=== PATIENT | female | born 1960 ===

== ENCOUNTER 2016-11-01 15:47 | Inpatient (IN) | payer OTHER ==
--- NOTE | 2016-11-01 17:14 | C.PDOC ---
History Of Present Illness Tamika Crowley, a 55 year old female with a past medical history of hypertension presents to the emergency department with epigastric pain and vomiting. The patient rates her pain at an 8/10 on the pain scale. Patient reports that the pain radiates down the left side and into her back. She states that prior to coming into the emergency department she had 3 episodes of vomiting. Upon arrival to the emergency department patient is diaphoretic, moaning, groaning, tearful and swooning in bed in pain. Denies dysuria, headache and fever but does note some vomiting and chills. Chief Complaint (Nursing): Abdominal Pain History Per: Patient History/Exam Limitations: no limitations Current Symptoms Are (Timing): Still Present Pain Scale Rating Of: 8 Past Medical History Reviewed: Historical Data, Nursing Documentation, Vital Signs Vital Signs: Last Vital Signs Temp 99.1 F 11/05/16 15:58 Pulse 82 11/05/16 15:58 Resp 20 11/05/16 15:58 BP 137/62 11/05/16 15:58 Pulse Ox 90 L 11/05/16 15:58 - Medical History PMH: HTN, Hyperlipidemia - Social History Hx Tobacco Use: No Hx Alcohol Use: No Hx Substance Use: No - Immunization History Hx Tetanus Toxoid Vaccination: No Hx Influenza Vaccination: No Hx Pneumococcal Vaccination: No Review Of Systems Constitutional: Positive for: Chills. Negative for: Fever Gastrointestinal: Positive for: Vomiting (x3 episodes) Genitourinary: Negative for: Dysuria Neurological: Negative for: Headache Physical Exam - Physical Exam Appears: Well, Non-toxic, No Acute Distress Skin: Normal Color, Warm, Dry Head: Atraumatic, Normacephalic Eye(s): bilateral: Normal Inspection, PERRL, EOMI Cardiovascular: Rhythm Regular Respiratory: Normal Breath Sounds, No Wheezing Gastrointestinal/Abdominal: Bowel Sounds, Soft, Tenderness (minimal tenderness to epigastric area) Back: Normal Inspection, No CVA Tenderness Neurological/Psych: Oriented x3, Normal Speech ED Course And Treatment - Laboratory Results Result Diagrams: 11/05/16 08:10 11/05/16 08:10 O2 Sat by Pulse Oximetry: 95 (RA) Pulse Ox Interpretation: Normal Medical Decision Making Medical Decision Making: Initial Impression: 55 year old female presenting with epigastric pain and vomiting Initial Plan: * CT ABD&PELV w/o PO contrast * EKG * B-type natriuretic * Comp Metabolic * Lipase * Troponin * CBC * Obstructive series * 1 tab PO * Maalox 30ml PO * Morphine 2mg IVP * Pepcid * NS 1000mls IV 1000mls/hr * Zofran 4mg IVP * Urine culture * Urinalysis * US Abdomen Limited * Reevaluation 1800 CT performed to r/o stones Lab called, CT reveals pancreatitis. LFT and white count elevated. Scribe Attestation Documented by Estefania Arana acting as a scribe fro Brissa Ruggiero MD. Provider Attestation All medical record entries made by the scribe were at my direction and personally dictated by me. I have reviewed the chart and agree that the record accurately reflects my personal performance, history, physical exam, medical decision making, and the department course for this patient. Ihave also personally directed, reviewed, and agree with the discharge instructions and disposition. Disposition Discussed With .: Luigi Blackburn Doctor Will See Patient In The: Hospital Counseled Patient/Family Regarding: Studies Performed, Diagnosis - Disposition Disposition: HOSPITALIZED Disposition Time: 18:40 Condition: GUARDED - Clinical Impression Clinical Impression: Pancreatitis Decision To Admit - Pt Status Changed To: Hospital Disposition Of: Inpatient - Admit Certification Admit to Inpatient:: After my assessment, the patient will require hospitalization for at least two midnights. This is because of the severity of symptoms shown, intensity of services needed, and/or the medical risk in this patient being treated as an outpatient. - InPatient: Physician Admission Certification:: pancreatitis - . Bed Request Type: Regular Patient Diagnosis: Pancreatitis
[2016-11-01] MEDS ORDERED: Aluminum Hydroxide/Magnesium Hydroxide Susp (30 mL) PO STA (17:15)
[2016-11-01] MEDS ORDERED: Sodium Chloride 0.9% 1,000 ML IV ONE (17:15)
[2016-11-01] MEDS ORDERED: Belladonna-Phenobarbital PO STA (17:15)
[2016-11-01] MEDS ORDERED: Belladonna-Phenobarbital ONE (17:24)
[2016-11-01] MEDS ORDERED: Sodium Chloride 0.9% 1,000 ML ONE (17:25)
[2016-11-01] MEDS ORDERED: Aluminum Hydroxide/Magnesium Hydroxide Susp (30 mL) ONE (17:25)
[2016-11-01] MEDS ORDERED: Morphine 4 MG/ML VIAL ONE (17:25)
[2016-11-01 17:27] LABS: BASO % 0.3 % (0.0-2.0); EOS % 0.3 % (0.0-4.0); LYMPH # 2.7 K/uL (1.0-4.3); LYMPH % 16.8 % (20.0-40.0); MEAN CELL VOLUME 86.2 fL (81.0-99.0); MEAN CORPUSCULAR HEMOGLOBIN 28.9 pg (27.0-31.0); MEAN CORPUSCULAR HGB CONC 33.5 g/dL (33.0-37.0); NEUT # 12.2 K/uL (1.8-7.0); NEUT % 76.6 % (50.0-75.0); NRBC % 0.1 % (0.0-2.0); RBC 5.2 Mil/uL (3.80-5.20); RED CELL DISTRIBUTION WIDTH 13.3 % (11.5-14.5)
[2016-11-01 17:35] LABS: ALBUMIN 4.4 g/dL (3.5-5.0)
[2016-11-01 17:38] LABS: ALB/GLOB RATIO 1.2 (1.0-2.1); AST/SGOT 193 U/L (14-36); BLOOD UREA NITROGEN 20 mg/dL (7-17); GFR AFRICAN-AMERICAN > 60; GFR NON-AFRICAN AMERICAN > 60
[2016-11-01 17:39] LABS: ALT/SGPT 132 U/L (9-52); CALCIUM 9.3 mg/dl (8.6-10.4)
[2016-11-01 17:48] LABS: B-TYPE NATRIURETIC PEPTIDE 21.8 pg/mL (0-900)
--- NOTE | 2016-11-01 18:20 | CT ---
PROCEDURE: CT Abdomen and Pelvis without intravenous contrast HISTORY: Unspecified abdominal pain COMPARISON: 08/18/2015 CT abdomen and pelvis 08/17/2016 pelvic ultrasound TECHNIQUE: Without contrast.. Contrast Dose: Unenhanced study. Neither oral nor intravenous contrast administered. Radiation dose: Total exam DLP = 1077.48 mGy-cm. This CT exam was performed using one or more of the following dose reduction techniques: Automated exposure control, adjustment of the mA and/or kV according to patient size, and/or use of iterative reconstruction technique. FINDINGS: LOWER THORAX: Unremarkable. LIVER: Hepatic steatosis. No focal masses. No intrahepatic bile duct dilatation or perihepatic ascites. GALLBLADDER AND BILE DUCTS: Unremarkable. PANCREAS: Diffusely enlarged, edematous pancreas with perinephric stranding particularly involving the body and tail of the pancreas with fluid tracking for the spleen. SPLEEN: Unremarkable. ADRENALS: Unremarkable. No mass. KIDNEYS AND URETERS: Unremarkable. No hydronephrosis. No solid mass. VASCULATURE: Unremarkable. No aortic aneurysm. BOWEL: Unremarkable. No obstruction. No gross mural thickening. APPENDIX: No abnormalities to suggest acute appendicitis. No right lower quadrant inflammatory processes identified. PERITONEUM: Unremarkable. No free fluid. No free air. LYMPH NODES: Unremarkable. No enlarged lymph nodes. BLADDER: Unremarkable. REPRODUCTIVE: Unremarkable. BONES: No acute fracture. OTHER FINDINGS: None. IMPRESSION: Evidence of pancreatitis. The absence of intravenous contrast precludes assessment for necrotizing pancreatitis. Communication of results: I discussed findings directly with the ordering physician Dr. Ruggiero at the time of this interpretation. . Study completed 17:36. Verbal results provided 18:13. Final results available in the electronic medical record at 18:18
[2016-11-01 18:46] LABS: LIPASE 41520 U/L (23-300)
--- NOTE | 2016-11-01 19:36 | CP.PCM.HP ---
<Sander Rockwell - Last Filed: 11/02/16 00:14> History of Present Illness - History of Present Illness History of Present Illness: Patient seen and evaluated at approximately 19:30PM by singer songwriter. CC: abdominal pain HPI: 55 year old female with PMHx significant for hypercholesterolemia and heart murmur presents with complaints of epigastric abdominal pain which started earlier today. Patient states that she was about to make lunch around 14 :30PM when she started experiencing the pain. It was initially rated an 8/10 with radiation to her back. Patient states that she has never experienced this sensation before. She experienced chills and "felt" as if she could not move her legs. Patient states that she was truly just surprised by the abdominal pain and was in fact able to ambulate about without difficulty. Patient called 911 and was thus brought to the emergency room. Upon arriving, patient had three episodes of non bloody; questionably bilious vomitus. Patient admits to chills, diaphoresis and nausea. She denies chest pain, palpitations, headaches, diarrhea, constipation, leg pain, recent travel, recent dietary changes, weight changes, changes in appetite, trauma, insect or animal bite or paresthesias at this time. Patient was accompanied by family members including son who is employed here. PMHx- as noted above. Of note, murmur was discovered incidentally on routine studies that patient acquired approx 10 years ago. Patient does not follow up with any doctor and has not had complaints of cardiac related symptoms in the past. PSHx- denies Fam Hx- many members of the family have high cholesterol; brother has a heart murmur Meds- None Social Hx- Admits to occasional alcohol use. Patient had a glass of wine on Monday. Denies tobacco or drug use. Allergies- NKDA PMD- None In the ED- Routine studies including ( but not limited to): CT abdomen, Abd US , Lipase, EKG, Obstructive series were ordered. Patient administered fluids, pain meds, zofran, simethicone, pepcid . Present on Admission - Present on Admission Any Indicators Present on Admission: No Review of Systems - Review of Systems Systems not reviewed;Unavailable: Language Barrier - Constitutional Constitutional: Chills, Excessive Sweating. absent: Fever, Headache, Weight Gain, Weight Loss, Weakness - EENT Eyes: absent: Blurred Vision, Change in Vision Nose/Mouth/Throat: absent: Nasal Congestion - Cardiovascular Cardiovascular: absent: Chest Pain, Chest Pain at Rest - Respiratory Respiratory: absent: Dyspnea - Gastrointestinal Gastrointestinal: Abdominal Pain, Nausea, Vomiting. absent: Constipation, Diarrhea - Genitourinary Genitourinary: absent: Change in Urinary Stream - Musculoskeletal Musculoskeletal: Back Pain. absent: Abnormal Gait, Arthralgias - Integumentary Integumentary: absent: Dry Skin, Skin Pain - Neurological Neurological: absent: Dizziness, Weakness - Psychiatric Psychiatric: absent: Anxiety - Endocrine Endocrine: absent: Change in Body Appearance, Fatigue Past Patient History - Past Social History Smoking Status: Never Smoked Alcohol: Occasional Drugs: Denies Home Situation {Lives}: With Family - CARDIAC Hx Hypertension: Yes - PSYCHIATRIC Hx Substance Use: No - SURGICAL HISTORY Hx Surgeries: No - ANESTHESIA Hx Anesthesia: No Meds Allergies/Adverse Reactions: Allergies Allergy/AdvReac Type Severity Reaction Status Date / Time No Known Allergies Allergy Verified 08/18/15 09:53 Physical Exam - Constitutional Appears: Non-toxic, No Acute Distress - Head Exam Head Exam: ATRAUMATIC, NORMAL INSPECTION, NORMOCEPHALIC - Eye Exam Eye Exam: EOMI, Normal appearance, PERRL. absent: Scleral icterus Pupil Exam: NORMAL ACCOMODATION, PERRL - ENT Exam ENT Exam: Mucous Membranes Moist, Normal Exam - Neck Exam Neck exam: Positive for: Full Rom - Respiratory Exam Respiratory Exam: Clear to Auscultation Bilateral, NORMAL BREATHING PATTERN. absent: Wheezes - Cardiovascular Exam Cardiovascular Exam: REGULAR RHYTHM, +S1, +S2 - GI/Abdominal Exam GI & Abdominal Exam: Distended, Hypoactive Bowel Sounds, Soft, Tenderness ( epigastric ans tender with palpation). absent: Firm, Guarding, Rebound, Rigid - Expanded GI/Abdominal Exam Expanded Expanded GI & Abdominal Exam: absent: Johnson's Sign, Rovsing's Sign, McBurney's Point Tenderness - Extremities Exam Extremities exam: Positive for: full ROM, normal capillary refill, tenderness, pedal pulses present. Negative for: calf tenderness, pedal edema - Back Exam Back exam: FULL ROM, tenderness (left flank) - Neurological Exam Neurological exam: Alert, CN II-XII Intact, Oriented x3 - Psychiatric Exam Psychiatric exam: Normal Affect, Normal Mood - Skin Skin Exam: Dry, Intact, Normal Color, Warm Results - Vital Signs Recent Vital Signs: Last Vital Signs Temp 97.8 F 11/01/16 16:10 Pulse 73 11/01/16 16:10 Resp 18 11/01/16 16:10 BP 126/74 11/01/16 16:10 Pulse Ox 95 11/01/16 19:17 - Labs Result Diagrams: 11/01/16 17:24 11/01/16 17:24 Assessment & Plan (1) Pancreatitis Assessment and Plan: Ct Abd with findings consistent with pancreatitis.- Diffusely enlarged edematous pancreas with perinephric stranding involving body and tail of pancreas Refer to full report. Abd US- confirms gallstones in gb; negative johnson's sign, normal gallbladder wall , no CBD dilation noted. F/U abdominal series [place] [address] LFTs and T. Bili elevated. F/U D. bili. UA 2+ urobilinogen noted Patient on LR @ 200cc/hr. Monitor for signs of fluid overload Morphine 2 mg IV Q4 PRN Zofran PRN Patient counseled on high cholesterol as well as importance of dietary changes with exercise. At this time, GI consult and/or surgery consult are of consideration. Patient may eventually benefit from elective cholecystectomy however gallbladder and CBD do not appear to be acutely inflamed at this time based on imaging. This is a first time symptomatic presentation for patient and thus will monitor overnight. Her presentation may be due to the presence of gallstones coupled with high cholesterol. Will need to check Lipid Panel, A1c, thyroid studies and routine AM labs. Status: Acute (2) Transaminitis Assessment and Plan: Elevated LFTs AST- 193 ALT- 132 Alk-P 100 F/U Hepatitis Panel Status: Acute (3) Hx of cardiac murmur Assessment and Plan: Troponin negative. EKG NSR F/U Echo BNP 21.8 Asymptomatic. Hx of incidental murmur discovered 10 years ago for which patient has not had a prior workup. Status: Chronic (4) Hypercholesterolemia Assessment and Plan: Patient with known history of high cholesterol. Will check Lipid panel Patient counseled on high cholesterol as well as importance of dietary changes with exercise. Status: Chronic (5) Prophylactic measure Assessment and Plan: SCDs Heparin SC Q 12 GI prophylaxis not currently indicated Status: Acute <Raul Fisher - Last Filed: 11/02/16 06:21> Results - Vital Signs Recent Vital Signs: Last Vital Signs Temp 98.6 F 11/01/16 23:46 Pulse 80 11/01/16 23:46 Resp 20 11/01/16 23:46 BP 120/77 11/01/16 23:46 Pulse Ox 96 11/01/16 23:46 - Labs Result Diagrams: 11/01/16 17:24 11/01/16 17:24 Labs: Laboratory Results - last 24 hr 11/01/16 21:36 Urine Color Yellow Urine Clarity Clear Urine pH 6.0 Ur Specific [place] 1.020 Urine Protein Negative Urine Glucose (UA) Normal Urine Ketones Trace Urine Blood Negative Urine Nitrate Negative Urine Bilirubin Negative Urine Urobilinogen 2.0 H Ur Leukocyte Esterase Neg Urine WBC (Auto) 1 Urine RBC (Auto) 4 H Ur Squamous Epith Cells 1 Urine Bacteria Rare Assessment & Plan - Date & Time Date: 11/02/16 (I have seen and examined the patient. I agree with the findings and plan of care as documented by Dr. Rockwell. Patient with acute pancreatitis. Also with transaminitis. CT confirms pancreatitis. Consider GI consult if necessary. Check acute hep panel. Symptomatic treatment. NPO. IVF. Monitor for acute changes.) Time: 06:19 Attending/Attestation - Attestation I have personally seen and examined this patient.: Yes I have fully participated in the care of the patient.: Yes I have reviewed all pertinent clinical information: Yes
[2016-11-01] MEDS: Lactated Ringer's 1,000 ML IV SCH (21:05)
[2016-11-01 22:00] LABS: SQUAMOUS EPITHIAL 1 /hpf (0-5); URINE BACTERIA RARE (<OCC); URINE BILIRUBIN NEGATIVE (NEGATIVE); URINE BLOOD NEGATIVE (NEGATIVE); URINE CLARITY Clear (Clear); URINE COLOR Yellow (YELLOW); URINE GLUCOSE (UA) NORMAL (Normal); URINE LEUKOCYTE ESTERASE NEG Leu/uL (Negative); URINE NITRATE NEGATIVE (NEGATIVE); URINE PROTEIN NEGATIVE (NEGATIVE)
[2016-11-01] MEDS ORDERED: Morphine 4 MG/ML VIAL IVP PRN (22:00)
[2016-11-02] MEDS: Lactated Ringer's 1,000 ML IV SCH ×8 (00:49→23:44)
--- NOTE | 2016-11-02 06:46 | US ---
Right upper quadrant abdominal ultrasound History: Abdominal pain. Comparison: None available. Technique: Real-time sonography was performed through the right upper quadrant of the abdomen. Findings: Liver: 15.3 centimeters in length. Increased echogenicity of the hepatic parenchymal cortex suggestive for fatty infiltration versus hepatic parenchymal disease. Clinical correlation. Gallbladder: Cholelithiasis. Normal gallbladder wall thickness of 1.5 millimeters. Negative sonographic Johnson's sign. Common bile duct measures 5.3 millimeters, within normal limits. Limited visualization of the pancreas. Visualized aorta and IVC are grossly preserved. Right kidney: 9.4 x 4.2 x 6.4 centimeters. No calculi or hydronephrosis. Impression: 1. Diffuse increased echogenicity of the hepatic parenchymal cortex suggestive for fatty infiltration versus hepatic parenchymal disease. Clinical correlation. 2. Cholelithiasis. Normal gallbladder wall thickness of 1.5 millimeters. Negative sonographic Johnson sign. 3. Limited visualization of the pancreas. If there is concern for pancreatic pathology, consider further evaluation with a CT scan. These findings were preliminarily reported at 8:46 p.m. on 11/01/[address] Jabier Fuller from [facility].
[2016-11-02 08:16] LABS: BASO % 0.4 % (0.0-2.0); HEMOGLOBIN 13.5 g/dL (11.0-16.0); LYMPH # 1.3 K/uL (1.0-4.3); LYMPH % 14.5 % (20.0-40.0); MEAN CELL VOLUME 86.8 fL (81.0-99.0); MEAN CORPUSCULAR HEMOGLOBIN 29.3 pg (27.0-31.0); MEAN CORPUSCULAR HGB CONC 33.8 g/dL (33.0-37.0); MEAN PLATELET VOLUME 7.8 fL (7.2-11.7); MONO # 0.4 K/uL (0.0-0.8); MONO % 4.7 % (0.0-10.0); NEUT # 7.3 K/uL (1.8-7.0); NEUT % 80.4 % (50.0-75.0); RBC 4.59 Mil/uL (3.80-5.20); WHITE BLOOD COUNT 9.1 K/uL (4.8-10.8)
[2016-11-02 08:26] LABS: INR 1.1; PROTHROMBIN TIME 12.1 SECONDS (9.7-12.2)
[2016-11-02 08:28] LABS: ALBUMIN 3.4 g/dL (3.5-5.0)
[2016-11-02 08:31] LABS: BILIRUBIN,DIRECT 0.4 mg/dL (0.0-0.4); GFR AFRICAN-AMERICAN > 60; GFR NON-AFRICAN AMERICAN > 60
[2016-11-02 08:32] LABS: ALT/SGPT 160 U/L (9-52); AST/SGOT 124 U/L (14-36); BLOOD UREA NITROGEN 15 mg/dL (7-17); CALCIUM 8.2 mg/dl (8.6-10.4)
[2016-11-02 08:33] LABS: HDL CHOLESTEROL 40 mg/dL (30-70); MAGNESIUM 1.9 mg/dL (1.6-2.3)
[2016-11-02 09:00] LABS: LDL CHOLESTEROL 184 mg/dL (0-129)
[2016-11-02 09:02] LABS: HEPATITIS B SURFACE AG NEGATIVE (NEGATIVE)
[2016-11-02 09:07] LABS: HEPATITIS A IGM NEGATIVE (NEGATIVE); HEPATITIS B CORE AB NEGATIVE (NEGATIVE)
[2016-11-02 09:19] LABS: HEPATITIS C ANTIBODY NEGATIVE (NEGATIVE)
--- NOTE | 2016-11-02 09:34 | CP.PCM.PN ---
<Ludin Bishopa - Last Filed: 11/02/16 12:16> Subjective - Date & Time of Evaluation Date of Evaluation: 11/02/16 Time of Evaluation: 07:00 - Subjective Subjective: Medicine Note for Dr. Blackburn Patient was seen and examined at bedside. Patient reports he pain is well controlled. Admits to mild left sided abdominal pain, but reports this is a 2-3/ 10 compared to a 10/10 last night. Denied fever, chills, headache, chest pain, n /v/d/c, or urinary symptoms. Objective - Vital Signs/Intake and Output Vital Signs (last 24 hours): Temp Pulse Resp BP Pulse Ox 98.6 F 80 20 120/77 96 11/01/16 23:46 11/01/16 23:46 11/01/16 23:46 11/01/16 23:46 11/01/16 23:46 Intake and Output: 11/02/16 11/02/16 06:59 18:59 Intake Total 1999 Balance 1999 - Medications Medications: Current Medications Heparin Sodium (Porcine) (Heparin) 5,000 units SC Q12 ANDREI Lactated Ringer's (Lactated Ringer's) 1,000 mls @ 200 mls/hr IV .Q5H ANDREI Last Admin: 11/02/16 06:37 Dose: 200 mls/hr Morphine Sulfate (Morphine) 2 mg IVP Q4 PRN PRN Reason: Pain, moderate (4-7) Last Admin: 11/01/16 22:13 Dose: 2 mg Ondansetron HCl (Zofran Inj) 4 mg IVP Q6 PRN PRN Reason: Nausea/Vomiting Pneumococcal Polyvalent Vaccine (Pneumovax 23 Vaccine) 0.5 ml IM .ONCE ONE Stop: 11/03/16 10:01 - Labs Labs: 11/02/16 08:01 11/02/16 08:01 PT 12.1 SECONDS (9.7-12.2) 11/02/16 08:01 INR 1.1 11/02/16 08:01 APTT 28 SECONDS (21-34) 11/02/16 08:01 - Constitutional Appears: No Acute Distress - Head Exam Head Exam: NORMAL INSPECTION, NORMOCEPHALIC - Eye Exam Eye Exam: EOMI, Normal appearance, PERRL Pupil Exam: NORMAL ACCOMODATION - ENT Exam ENT Exam: Mucous Membranes Moist - Neck Exam Neck Exam: Normal Inspection - Respiratory Exam Respiratory Exam: Clear to Ausculation Bilateral, NORMAL BREATHING PATTERN - Cardiovascular Exam Cardiovascular Exam: REGULAR RHYTHM, RRR, +S1, +S2 - GI/Abdominal Exam GI & Abdominal Exam: Soft, Tenderness (LUQ, epigastric TTP), Normal Bowel Sounds - Extremities Exam Extremities Exam: Normal Inspection. absent: Pedal Edema, Tenderness - Neurological Exam Neurological Exam: Alert, Awake, Oriented x3 - Skin Skin Exam: Dry, Intact, Normal Color, Warm Assessment and Plan - Assessment and Plan (Free Text) Plan: Pancreatitis Assessment and Plan: Abd US- confirms gallstones in gb; negative lance's sign, normal gallbladder wall , no CBD dilation noted. Ct Abd with findings consistent with pancreatitis.- Diffusely enlarged edematous pancreas with perinephric stranding involving body and [place]. [place] [address] LFTs and T. Bili elevated. D. bili - WNL UA 2+ urobilinogen noted NPO, Patient on LR @ 250cc/hr. Monitor for signs of fluid overload Morphine 2 mg IV Q4 PRN, Zofran PRN Patient counseled on high cholesterol as well as importance of dietary changes with exercise. Lipid Panel: T, Chol: 242, LDL: 184, HDL: 40 A1c- 5.7 Thyroid studies- WNL Abdominal series - negative GI Consulted- Dr. Arana- help appreciated - MRCP and MRI abdomen with and without contrast Surgery Consulted- Dr. Story- help appreciated Status: Acute Transaminitis Assessment and Plan: On admission: AST- 193/ ALT- 132/ Alk-P 100 Elevated LFTs - which are now downtrending Hepatitis Panel - negative Status: Acute Hx of cardiac murmur Assessment and Plan: Troponin negative. EKG NSR BNP 21.8 Asymptomatic. Hx of incidental murmur discovered 10 years ago for which patient has not had a prior workup. F/U ECHO Status: Chronic Hypercholesterolemia Assessment and Plan: Patient with known history of high cholesterol. Patient counseled on high cholesterol as well as importance of dietary changes with exercise. T, Chol: 242, LDL: 184, HDL: 40 Started on Crestor 10mg PO QHS Status: Chronic Prophylactic measure Assessment and Plan: SCDs Heparin SC Q 12 GI prophylaxis not currently indicated NPO Status: Acute DW Dario Loja DO, PGY-1 <Luigi Blackburn M - Last Filed: 11/02/16 17:35> Objective - Vital Signs/Intake and Output Vital Signs (last 24 hours): Temp Pulse Resp BP Pulse Ox 98.8 F 71 20 125/84 96 11/02/16 16:00 11/02/16 16:00 11/02/16 16:00 11/02/16 16:00 11/02/16 16:00 Intake and Output: 11/02/16 11/02/16 06:59 18:59 Intake Total 1999 1600 Balance 1999 1600 - Medications Medications: Current Medications Famotidine (Pepcid) 20 mg IVP DAILY COUNTS INCLUDE 234 BEDS AT THE [facility] Last Admin: 11/02/16 16:30 Dose: 20 mg Heparin Sodium (Porcine) (Heparin) 5,000 units SC Q12 COUNTS INCLUDE 234 BEDS AT THE [facility] Last Admin: 11/02/16 10:09 Dose: 5,000 units Lactated Ringer's (Lactated Ringer's) 1,000 mls @ 250 mls/hr IV .Q4H COUNTS INCLUDE 234 BEDS AT THE [facility] Last Admin: 11/02/16 12:30 Dose: Not Given Morphine Sulfate (Morphine) 4 mg IVP Q4 PRN PRN Reason: Pain, severe (8-10) Ondansetron HCl (Zofran Inj) 4 mg IVP Q6 PRN PRN Reason: Nausea/Vomiting Pneumococcal Polyvalent Vaccine (Pneumovax 23 Vaccine) 0.5 ml IM .ONCE ONE Stop: 11/03/16 10:01 Rosuvastatin Calcium (Crestor) 10 mg PO HS ANDREI - Labs Labs: 11/02/16 08:01 11/02/16 08:01 PT 12.1 SECONDS (9.7-12.2) 11/02/16 08:01 INR 1.1 11/02/16 08:01 APTT 28 SECONDS (21-34) 11/02/16 08:01 Attending/Attestation - Attestation I have personally seen and examined this patient.: Yes I have fully participated in the care of the patient.: Yes I have reviewed all pertinent clinical information, including history, physical exam and plan: Yes Notes (Text): 11/02/16 17:33 Patient was seen and examined at bedside with the resident Patient is being treated for acute pancreatitis We have requested gastroenterology and surgery evaluation. Follow-up report of the MRCP. Patient remains nothing by mouth and on IV fluids. Pain medication as needed. Crestor for hyperlipidemia. Patient is on GI and DVT prophylaxis Discussed the plan of care with the resident and agree with the assessment and plan documented above.
--- NOTE | 2016-11-02 10:52 | RAD ---
PROCEDURE: Radiographs of the chest and abdomen (obstructive series) HISTORY: Abdominal pain COMPARISON: No prior. TECHNIQUE: AP radiograph of the chest, with upright and supine radiographs of the abdomen. FINDINGS: CHEST: Lungs: Clear. Cardiovascular: Normal size heart. No pulmonary vascular congestion. Pleura: No pleural fluid. No pneumothorax. Other findings: None. ABDOMEN AND PELVIS: Bowel: The bowel gas pattern is nonobstructive. No evidence of mechanical obstruction. Free air: None. Bones: Unremarkable. Other findings: None. IMPRESSION: Nonobstructive bowel-gas pattern. Clear lungs.
[2016-11-02] MEDS ORDERED: Morphine 4 MG/ML VIAL IVP PRN (12:23)
--- NOTE | 2016-11-02 12:32 | CP.PCM.CON ---
History of Present Illness - History of Present Illness History of Present Illness: SURGERY CONSULT NOTE FOR DR. BRADFORD 54 year old female presented with abdominal pain. The pain began yesterday around 3pm. Pain is described as waxing and waning, only radiating to the back. It was describe as 3 out of 10. Nothing remediates or exacerbates the symptoms. Patients states she had 4 episodes of vomiting, chills, and nausea at the onset of the pain but the symptoms have subsided. At bedside patient denies fever, chills, nausea, vomiting. Denies smoking, alcohol use, and illicit drug use. PMH: HLD, new murmur PSH: denies Social: denies tobacco, alcohol, illicit drug use Allergies: NKDA Past Patient History - Past Medical History & Family History Past Medical History?: Yes - Past Social History Smoking Status: Never Smoked Alcohol: Occasional Drugs: Denies Home Situation {Lives}: With Family - CARDIAC Hx Hypertension: Yes - MUSCULOSKELETAL/RHEUMATOLOGICAL Hx Falls: No - PSYCHIATRIC Hx Substance Use: No - SURGICAL HISTORY Hx Surgeries: No - ANESTHESIA Hx Anesthesia: No Meds Allergies/Adverse Reactions: Allergies Allergy/AdvReac Type Severity Reaction Status Date / Time No Known Allergies Allergy Verified 08/18/15 09:53 - Medications Medications: Current Medications Heparin Sodium (Porcine) (Heparin) 5,000 units SC Q12 [facility] Last Admin: 11/02/16 10:09 Dose: 5,000 units Lactated Ringer's (Lactated Ringer's) 1,000 mls @ 250 mls/hr IV .Q4H [facility] Morphine Sulfate (Morphine) 4 mg IVP Q4 PRN PRN Reason: Pain, severe (8-10) Ondansetron HCl (Zofran Inj) 4 mg IVP Q6 PRN PRN Reason: Nausea/Vomiting Pneumococcal Polyvalent Vaccine (Pneumovax 23 Vaccine) 0.5 ml IM .ONCE ONE Stop: 11/03/16 10:01 Rosuvastatin Calcium (Crestor) 10 mg PO HS [facility] Physical Exam - Constitutional Appears: Non-toxic, No Acute Distress - Head Exam Head Exam: ATRAUMATIC - ENT Exam ENT Exam: Mucous Membranes Moist - Respiratory Exam Respiratory Exam: Clear to Auscultation Bilateral, NORMAL BREATHING PATTERN - Cardiovascular Exam Cardiovascular Exam: REGULAR RHYTHM, +S1, +S2 - GI/Abdominal Exam GI & Abdominal Exam: Guarding, Soft, Tenderness (epigastric, mild tenderness). absent: Distended, Firm, Rebound, Rigid - Extremities Exam Extremities exam: Negative for: tenderness - Neurological Exam Neurological exam: Alert, Oriented x3 - Psychiatric Exam Psychiatric exam: Normal Affect, Normal Mood - Skin Skin Exam: Dry, Intact, Normal Color, Warm Results - Vital Signs Recent Vital Signs: Last Vital Signs Temp 98.4 F 11/02/16 08:00 Pulse 65 11/02/16 08:00 Resp 20 11/02/16 08:00 BP 137/82 11/02/16 08:00 Pulse Ox 93 L 11/02/16 08:00 - Labs Result Diagrams: 11/02/16 08:01 11/02/16 08:01 Labs: Laboratory Results - last 24 hr 11/01/16 11/02/16 11/02/16 21:36 07:06 08:01 WBC 9.1 RBC 4.59 Hgb 13.5 Hct 39.8 MCV 86.8 MCH 29.3 MCHC 33.8 RDW 13.0 Plt Count 249 MPV 7.8 Neut % (Auto) 80.4 H Lymph % (Auto) 14.5 L [place] % (Auto) 4.7 Eos % (Auto) 0.0 Baso % (Auto) 0.4 Neut # 7.3 H Lymph # 1.3 Dent # 0.4 Eos # 0.0 Baso # 0.0 PT INR APTT Sodium Potassium Chloride Carbon Dioxide Anion Gap BUN Creatinine Est GFR ( Amer) Est GFR (Non-Af Amer) POC Glucose (mg/dL) 121 H Random Glucose Hemoglobin A1c Calcium Phosphorus Magnesium Total Bilirubin Direct Bilirubin AST ALT Alkaline Phosphatase Total Protein Albumin Globulin Albumin/Globulin Ratio Triglycerides Cholesterol LDL Cholesterol Direct HDL Cholesterol Free T4 TSH 3rd Generation Urine Color Yellow Urine Clarity Clear Urine pH 6.0 Ur Specific [place] 1.020 Urine Protein Negative Urine Glucose (UA) Normal Urine Ketones Trace Urine Blood Negative Urine Nitrate Negative Urine Bilirubin Negative Urine Urobilinogen 2.0 H Ur Leukocyte Esterase Neg Urine WBC (Auto) 1 Urine RBC (Auto) 4 H Ur Squamous Epith Cells 1 Urine Bacteria Rare Hepatitis A IgM Ab Hep Bs Antigen Hep B Core IgM Ab Hepatitis C Antibody 11/02/16 11/02/16 11/02/16 08:01 08:01 08:01 WBC RBC Hgb Hct MCV MCH MCHC RDW Plt Count MPV Neut % (Auto) Lymph % (Auto) [place] % (Auto) Eos % (Auto) Baso % (Auto) Neut # Lymph # [place] # Eos # Baso # PT 12.1 INR 1.1 APTT 28 Sodium 139 Potassium 3.7 Chloride 101 Carbon Dioxide 26 Anion Gap 16 BUN 15 Creatinine 0.6 L Est GFR ( Amer) > 60 Est GFR (Non-Af Amer) > 60 POC Glucose (mg/dL) Random Glucose 108 H Hemoglobin A1c Calcium 8.2 L Phosphorus 3.6 Magnesium 1.9 Total Bilirubin 1.4 H Direct Bilirubin 0.4 AST 124 H D ALT 160 H D Alkaline Phosphatase 74 Total Protein 6.7 Albumin 3.4 L D Globulin 3.3 Albumin/Globulin Ratio 1.0 Triglycerides 107 Cholesterol 242 H LDL Cholesterol Direct 184 H HDL Cholesterol 40 Free T4 TSH 3rd Generation 1.29 Urine Color Urine Clarity Urine pH Ur Specific [place] Urine Protein Urine Glucose (UA) Urine Ketones Urine Blood Urine Nitrate Urine Bilirubin Urine Urobilinogen Ur Leukocyte Esterase Urine WBC (Auto) Urine RBC (Auto) Ur Squamous Epith Cells Urine Bacteria Hepatitis A IgM Ab Negative Hep Bs Antigen Negative Hep B Core IgM Ab Negative Hepatitis C Antibody Negative 11/02/16 11/02/16 08:01 08:01 WBC RBC Hgb Hct MCV MCH MCHC RDW Plt Count MPV Neut % (Auto) Lymph % (Auto) [place] % (Auto) Eos % (Auto) Baso % (Auto) Neut # Lymph # [place] # Eos # Baso # PT INR APTT Sodium Potassium Chloride Carbon Dioxide Anion Gap BUN Creatinine Est GFR ( Amer) Est GFR (Non-Af Amer) POC Glucose (mg/dL) Random Glucose Hemoglobin A1c 5.7 Calcium Phosphorus Magnesium Total Bilirubin Direct Bilirubin AST ALT Alkaline Phosphatase Total Protein Albumin Globulin Albumin/Globulin Ratio Triglycerides Cholesterol LDL Cholesterol Direct HDL Cholesterol Free T4 0.91 TSH 3rd Generation Urine Color Urine Clarity Urine pH Ur Specific [place] Urine Protein Urine Glucose (UA) Urine Ketones Urine Blood Urine Nitrate Urine Bilirubin Urine Urobilinogen Ur Leukocyte Esterase Urine WBC (Auto) Urine RBC (Auto) Ur Squamous Epith Cells Urine Bacteria Hepatitis A IgM Ab Hep Bs Antigen Hep B Core IgM Ab Hepatitis C Antibody Assessment & Plan - Assessment and Plan (Free Text) Assessment: 55 F with acute pancreatitis 2/2 likely gallstones Lipase 41K, TBili 1.4, Abdominal U/S Cholelithiasis, CBD 5.[address] shows pancreatitis Plan: NPO, pain control, IVF F/U MRCP, F/U GI recommendations F/U Echo for murmur GI/DTV prophylaxis Further recs discuss with Dr. Porsha Ragsdale, PGY2
--- NOTE | 2016-11-02 12:34 | CARD ---
APPROVED REPORT EKG Measurement Heart [id number] <Conclusion> Normal sinus rhythm Normal ECG
[2016-11-02] MEDS ORDERED: Gadodiamide 287 mg/ml 20 ml IV ONE (14:56)
--- NOTE | 2016-11-02 16:59 | MRI ---
PROCEDURE: Magnetic Resonance Cholangiopancreatography HISTORY: COMPARISON: None available. TECHNIQUE: Multiplanar, multisequence MR images of the abdomen were obtained, including heavily T2 weighted MRCP images of the biliary system. Rotating maximum intensity projection images of the biliary system were generated. FINDINGS: MRCP: The common bile duct measures approximately 7 mm in diameter. There is smooth distal tapering. There is no filling defect identified. There is no intrahepatic biliary dilatation seen. The pancreatic duct is normal in caliber. LIVER: Normal size, contour and signal intensity. No mass. No biliary dilatation. No abnormal enhancement following gadolinium administration. GALLBLADDER: Cholelithiasis. No mural thickening. No pericholecystic fluid/ edema. SPLEEN: Unremarkable. PANCREAS: The pancreas is significant for fluid about the tail extending to the left anterior and posterior pararenal spaces, consistent with acute pancreatitis. There is no pancreatic mass. Post gadolinium images demonstrate no evidence necrotizing pancreatitis. ADRENALS: Unremarkable. KIDNEYS: Unremarkable. AORTA: No aneurysm. ASCITES: None. OTHER FINDINGS: None. IMPRESSION: Findings consistent with acute focal pancreatitis involving the tail of pancreas. Fluid about the pancreatic tail extending to the left anterior and posterior para renal spaces. No focal fluid collection. No evidence of choledocholithiasis. Cholelithiasis is noted without evidence of cholecystitis. No evidence of necrotizing pancreatitis. No additional abnormality.
--- NOTE | 2016-11-02 17:48 | CP.PCM.CON ---
History of Present Illness - History of Present Illness History of Present Illness: This is a 55 year old woman admitted for nausea, vomiting, and abdominal pain. Patient presented to the ER on 11/01/16 with sudden onset of severe, colicky epigastric pain four hours earlier accompanied by chills, nausea, vomiting ( three times), and sweating. She denies having chest pain, palpitations, constipation, diarrhea, loss of appetite, loss of weight. She denies recent travel. Evaluation in the ER showed abnormal liver enzymes and a markedly elevated lipase level, 41,520. The TBILI is 1.4, AST 124 (was 193), ALT 160 (was 132). Imaging studies have included: sonogram, which showed gallstones and normal CBD ; CT scan, which showed enlarged, edematous pancreas with peripancreatic stranding; and MRCP which showed CBD 7 mm and no CBD stones, and fluid around the tail of the pancreas. At present, patient denies having nausea and vomiting, and the abdominal pain is minimal. Review of Systems - Constitutional Constitutional: Chills, Excessive Sweating. absent: Fever - Cardiovascular Cardiovascular: absent: Chest Pain - Respiratory Respiratory: absent: Dyspnea - Gastrointestinal Gastrointestinal: Abdominal Pain, Nausea, Vomiting. absent: Constipation, Diarrhea - Genitourinary Genitourinary: absent: Change in Urinary Stream Past Patient History - Past Medical History & Family History Past Medical History?: Yes - Past Social History Smoking Status: Never Smoked Alcohol: Occasional Drugs: Denies Home Situation {Lives}: With Family - CARDIAC Hx Hypertension: Yes - MUSCULOSKELETAL/RHEUMATOLOGICAL Hx Falls: No - PSYCHIATRIC Hx Substance Use: No - SURGICAL HISTORY Hx Surgeries: No - ANESTHESIA Hx Anesthesia: No Meds Allergies/Adverse Reactions: Allergies Allergy/AdvReac Type Severity Reaction Status Date / Time No Known Allergies Allergy Verified 08/18/15 09:53 - Medications Medications: Current Medications Famotidine (Pepcid) 20 mg IVP DAILY [facility] Last Admin: 11/02/16 16:30 Dose: 20 mg Heparin Sodium (Porcine) (Heparin) 5,000 units SC Q12 [facility] Last Admin: 11/02/16 10:09 Dose: 5,000 units Lactated Ringer's (Lactated Ringer's) 1,000 mls @ 250 mls/hr IV .Q4H [facility] Last Admin: 11/02/16 12:30 Dose: Not Given Morphine Sulfate (Morphine) 4 mg IVP Q4 PRN PRN Reason: Pain, severe (8-10) Ondansetron HCl (Zofran Inj) 4 mg IVP Q6 PRN PRN Reason: Nausea/Vomiting Pneumococcal Polyvalent Vaccine (Pneumovax 23 Vaccine) 0.5 ml IM .ONCE ONE Stop: 11/03/16 10:01 Rosuvastatin Calcium (Crestor) 10 mg PO HS [facility] Physical Exam - Constitutional Appears: No Acute Distress - Head Exam Head Exam: ATRAUMATIC, NORMOCEPHALIC - Eye Exam Eye Exam: EOMI, PERRL. absent: Scleral icterus - Neck Exam Neck exam: Negative for: Lymphadenopathy, Thyromegaly - Respiratory Exam Respiratory Exam: NORMAL BREATHING PATTERN. absent: Rales, Rhonchi, Wheezes - Cardiovascular Exam Cardiovascular Exam: REGULAR RHYTHM, +S1, +S2. absent: Gallop, Rubs, Systolic Murmur - GI/Abdominal Exam GI & Abdominal Exam: Normal Bowel Sounds, Soft. absent: Mass, Organomegaly, Tenderness - Rectal Exam Rectal Exam: Deferred - Extremities Exam Extremities exam: Negative for: calf tenderness, pedal edema Results - Vital Signs Recent Vital Signs: Last Vital Signs Temp 98.8 F 11/02/16 16:00 Pulse 71 11/02/16 16:00 Resp 20 11/02/16 16:00 BP 125/84 11/02/16 16:00 Pulse Ox 96 11/02/16 16:00 - Labs Result Diagrams: 11/02/16 08:01 11/02/16 08:01 Labs: Laboratory Results - last 24 hr 11/01/16 11/02/16 11/02/16 21:36 07:06 08:01 WBC 9.1 RBC 4.59 Hgb 13.5 Hct 39.8 MCV 86.8 MCH 29.3 MCHC 33.8 RDW 13.0 Plt Count 249 MPV 7.8 Neut % (Auto) 80.4 H Lymph % (Auto) 14.5 L [place] % (Auto) 4.7 Eos % (Auto) 0.0 Baso % (Auto) 0.4 Neut # 7.3 H Lymph # 1.3 [place] # 0.4 Eos # 0.0 Baso # 0.0 PT INR APTT Sodium Potassium Chloride Carbon Dioxide Anion Gap BUN Creatinine Est GFR ( Amer) Est GFR (Non-Af Amer) POC Glucose (mg/dL) 121 H Random Glucose Hemoglobin A1c Calcium Phosphorus Magnesium Total Bilirubin Direct Bilirubin AST ALT Alkaline Phosphatase Total Protein Albumin Globulin Albumin/Globulin Ratio Triglycerides Cholesterol LDL Cholesterol Direct HDL Cholesterol Free T4 TSH 3rd Generation Urine Color Yellow Urine Clarity Clear Urine pH 6.0 Ur Specific [place] 1.020 Urine Protein Negative Urine Glucose (UA) Normal Urine Ketones Trace Urine Blood Negative Urine Nitrate Negative Urine Bilirubin Negative Urine Urobilinogen 2.0 H Ur Leukocyte Esterase Neg Urine WBC (Auto) 1 Urine RBC (Auto) 4 H Ur Squamous Epith Cells 1 Urine Bacteria Rare Urine HCG, Qual Hepatitis A IgM Ab Hep Bs Antigen Hep B Core IgM Ab Hepatitis C Antibody 11/02/16 11/02/16 11/02/16 08:01 08:01 08:01 WBC RBC Hgb Hct MCV MCH MCHC RDW Plt Count MPV Neut % (Auto) Lymph % (Auto) [place] % (Auto) Eos % (Auto) Baso % (Auto) Neut # Lymph # [place] # Eos # Baso # PT 12.1 INR 1.1 APTT 28 Sodium 139 Potassium 3.7 Chloride 101 Carbon Dioxide 26 Anion Gap 16 BUN 15 Creatinine 0.6 L Est GFR ( Amer) > 60 Est GFR (Non-Af Amer) > 60 POC Glucose (mg/dL) Random Glucose 108 H Hemoglobin A1c Calcium 8.2 L Phosphorus 3.6 Magnesium 1.9 Total Bilirubin 1.4 H Direct Bilirubin 0.4 AST 124 H D ALT 160 H D Alkaline Phosphatase 74 Total Protein 6.7 Albumin 3.4 L D Globulin 3.3 Albumin/Globulin Ratio 1.0 Triglycerides 107 Cholesterol 242 H LDL Cholesterol Direct 184 H HDL Cholesterol 40 Free T4 TSH 3rd Generation 1.29 Urine Color Urine Clarity Urine pH Ur Specific [place] Urine Protein Urine Glucose (UA) Urine Ketones Urine Blood Urine Nitrate Urine Bilirubin Urine Urobilinogen Ur Leukocyte Esterase Urine WBC (Auto) Urine RBC (Auto) Ur Squamous Epith Cells Urine Bacteria Urine HCG, Qual Hepatitis A IgM Ab Negative Hep Bs Antigen Negative Hep B Core IgM Ab Negative Hepatitis C Antibody Negative 11/02/16 11/02/16 11/02/16 08:01 08:01 12:22 WBC RBC Hgb Hct MCV MCH MCHC RDW Plt Count MPV Neut % (Auto) Lymph % (Auto) [place] % (Auto) Eos % (Auto) Baso % (Auto) Neut # Lymph # [place] # Eos # Baso # PT INR APTT Sodium Potassium Chloride Carbon Dioxide Anion Gap BUN Creatinine Est GFR ( Amer) Est GFR (Non-Af Amer) POC Glucose (mg/dL) Random Glucose Hemoglobin A1c 5.7 Calcium Phosphorus Magnesium Total Bilirubin Direct Bilirubin AST ALT Alkaline Phosphatase Total Protein Albumin Globulin Albumin/Globulin Ratio Triglycerides Cholesterol LDL Cholesterol Direct HDL Cholesterol Free T4 0.91 TSH 3rd Generation Urine Color Urine Clarity Urine pH Ur Specific [place] Urine Protein Urine Glucose (UA) Urine Ketones Urine Blood Urine Nitrate Urine Bilirubin Urine Urobilinogen Ur Leukocyte Esterase Urine WBC (Auto) Urine RBC (Auto) Ur Squamous Epith Cells Urine Bacteria Urine HCG, Qual Negative Hepatitis A IgM Ab Hep Bs Antigen Hep B Core IgM Ab Hepatitis C Antibody Assessment & Plan (1) Gallstone pancreatitis Assessment and Plan: Patient presented with colicky abdominal pain, elevated liver enzymes and amylase, with evidence on imaging of pancreatic edema and leakage of fluid into the peripancreatic spaces. The clinical picture is quite consistent with gallstone pancreatitis. Since the pain has largely resolved, and the MRCP did not show evidence of a retained CBD stone, it is likely that the stone which migrated down the duct has actually passed. Recommend advancing diet in AM if patient remains pain-free. The liver enzymes should be checked daily. Agree with plans for cholecystectomy on this admission. Status: Acute
--- NOTE | 2016-11-02 20:01 | CARD ---
APPROVED REPORT EXAM: Two-dimensional and M-mode echocardiogram with Doppler and color Doppler. Other Information Quality : GoodRhythm : NSR INDICATION Murmur RISK FACTORS Hypertension Hyperlipidemia 2D DIMENSIONS LVOT Diameter1.9 (1.8-2.4cm) M-Mode DIMENSIONS Left Atrium (MM)4.09 (2.5-4.0cm)IVSd0.96 (0.7-1.1cm) Aortic Root3.06 (2.2-3.7cm)LVDd5.33 (4.0-5.6cm) Aortic Cusp Exc.1.51 (1.5-2.0cm)PWd1.04 (0.7-1.1cm) FS (%) 30 %LVDs3.72 (2.0-3.8cm) LVEF (%)57 (>50%) Aortic Valve AoV Peak Aucpuagb680.8cm/sAoV VTI50.1cmAO Peak GR.16mmHg LVOT Peak Snstsdts285.8cm/sLVOT VTI28.27cmAO Mean GR.7mmHg HIPOLITO (VMAX)1.83wt7WXF (VTI)1.56cm2 Mitral Valve MV E Ftrjyrgj05.3cm/sMV A Mmszukpp541.3cm/sE/A ratio0.9 TDI E/Lateral E'0.0E/Medial E'0.0 Tricuspid Valve TR Peak Gfqgpomn171ug/sTR Peak Gr.23rtYtBPYK28neAn LEFT VENTRICLE The left ventricle is normal size. There is borderline concentric left ventricular hypertrophy. Left ventricle systolic function is normal. The Ejection Fraction is 65-70%. There is normal LV segmental wall motion. Transmitral Doppler flow pattern is Grade I-abnormal relaxation pattern. There is no ventricular septal defect visualized. RIGHT VENTRICLE The right ventricle is normal size. The right ventricular systolic function is normal. ATRIA The left atrium is mildly dilated. The right atrium size is normal. AORTIC VALVE The aortic valve is not well visualized. The aortic valve is mildly sclerotic. The aortic valve is probably trileaflet. No aortic regurgitation is present. There is mild valvular aortic stenosis. Calculated aortic valve area is 1.8 cm2 with maximum pressure gradient of 18 mmHg MITRAL VALVE The mitral valve is normal in structure. There is no evidence of mitral valve prolapse. There is no mitral valve regurgitation noted. TRICUSPID VALVE The tricuspid valve is normal in structure. There is trace to mild tricuspid regurgitation. Right ventricular systolic pressure is estimated at 40-50 mmHg. There is mild-moderate pulmonary hypertension. PULMONIC VALVE The pulmonic valve is not well visualized. There is no pulmonic valvular regurgitation. GREAT VESSELS The IVC is normal in size and collapses >50% with inspiration. PERICARDIAL EFFUSION There is no pericardial effusion. <Conclusion> There is borderline concentric left ventricular hypertrophy. Left ventricle systolic function is normal. The Ejection Fraction is 65-70%. There is mild valvular aortic stenosis. There is mild-moderate pulmonary hypertension. Transmitral Doppler flow pattern is Grade I-abnormal relaxation pattern.
[2016-11-03] MEDS: Lactated Ringer's 1,000 ML IV SCH ×6 (02:32→22:48)
[2016-11-03 08:07] LABS: ALBUMIN 3.4 g/dL (3.5-5.0)
[2016-11-03 08:10] LABS: AMYLASE 274 U/L (30-110); AST/SGOT 55 U/L (14-36); GFR AFRICAN-AMERICAN > 60; GFR NON-AFRICAN AMERICAN > 60
[2016-11-03 08:11] LABS: ALT/SGPT 112 U/L (9-52); BLOOD UREA NITROGEN 6 mg/dL (7-17); CALCIUM 8.3 mg/dl (8.6-10.4); LIPASE 793 U/L (23-300); MAGNESIUM 1.8 mg/dL (1.6-2.3)
[2016-11-03 08:13] LABS: BASO % 0.5 % (0.0-2.0); EOS % 0.4 % (0.0-4.0); HEMOGLOBIN 13.3 g/dL (11.0-16.0); LYMPH # 1.8 K/uL (1.0-4.3); LYMPH % 17.6 % (20.0-40.0); MEAN CELL VOLUME 86.4 fL (81.0-99.0); MEAN CORPUSCULAR HEMOGLOBIN 29.3 pg (27.0-31.0); MEAN CORPUSCULAR HGB CONC 33.9 g/dL (33.0-37.0); MEAN PLATELET VOLUME 8.2 fL (7.2-11.7); MONO # 0.7 K/uL (0.0-0.8); MONO % 7.1 % (0.0-10.0); NEUT # 7.8 K/uL (1.8-7.0); NEUT % 74.4 % (50.0-75.0); RBC 4.53 Mil/uL (3.80-5.20); RED CELL DISTRIBUTION WIDTH 13.1 % (11.5-14.5); WHITE BLOOD COUNT 10.4 K/uL (4.8-10.8)
[2016-11-03] MEDS ORDERED: Pneumococcal 23-Valent Vaccine IM ONE (10:00)
[2016-11-03] MEDS ORDERED: ceFAZolin IV 1 gm in Dextrose 1 GM/50 ML BAG IVPB ONE (10:14)
[2016-11-03] MEDS ORDERED: Iohexol 240 (50 ml) ONE (10:23)
[2016-11-03] MEDS ORDERED: Midazolam 2 MG/2 ML VIAL ONE (10:27)
[2016-11-03] MEDS ORDERED: Propofol 10 mg/ml Inj (20 ML) ONE (10:28)
[2016-11-03] MEDS ORDERED: Lactated Ringer's 1,000 ML IV ONE (10:30)
[2016-11-03] MEDS ORDERED: Neostigmine Methylsulfate 3mg/3ml Syringe IV ONE (11:27)
--- NOTE | 2016-11-03 12:27 | PCM.SURG1 ---
Surgeon's Initial Post Op Note - Surgeon's Notes Surgeon: Dr. Story Machine Tender: Dr. Dunlap PGY-4, Dr. Metzger PGY-2 Type of Anesthesia: General Endo Pre-Operative Diagnosis: cholelithiasis. pancreatitis Operative Findings: see operative report Post-Operative Diagnosis: see operative report Operation Performed: laparoscopic cholecystectomy Specimen/Specimens Removed: gallbladder Estimated Blood Loss: EBL {In ML}: 50 Drains Used: Roddy Date of Surgery/Procedure: 11/03/16 Time of Surgery/Procedure: 12:27
[2016-11-03] MEDS: Piperacill/Tazo 3.375gm in Dex 3.375 GM/50 ML BAG IVPB SCH ×2 (12:30→18:30)
--- NOTE | 2016-11-03 13:32 | CP.PCM.PN ---
<Veronika Bishop - Last Filed: 11/03/16 13:28> Subjective - Date & Time of Evaluation Date of Evaluation: 11/03/16 Time of Evaluation: 07:00 - Subjective Subjective: Medicine Note for Dr. Blackburn Patient was seen and examined at bedside. Patient reports he pain is well controlled. Patient was scheduled for lap armen today. Denied fever, chills, headache, chest pain, n/v/d/c, or urinary symptoms. Objective - Vital Signs/Intake and Output Vital Signs (last 24 hours): Temp Pulse Resp BP Pulse Ox 99.1 F 83 20 131/75 95 11/03/16 08:16 11/03/16 08:16 11/03/16 08:16 11/03/16 08:16 11/03/16 08:16 Intake and Output: 11/03/16 11/03/16 06:59 18:59 Intake Total 4000 50 Balance 4000 50 - Medications Medications: Current Medications Acetaminophen (Tylenol 325mg Tab) 975 mg PO Q8 [facility] Famotidine (Pepcid) 20 mg IVP DAILY [facility] Last Admin: 11/02/16 16:30 Dose: 20 mg Heparin Sodium (Porcine) (Heparin) 5,000 units SC Q12 [facility] Last Admin: 11/02/16 21:43 Dose: 5,000 units Lactated Ringer's (Lactated Ringer's) 1,000 mls @ 250 mls/hr IV .Q4H [facility] Last Admin: 11/03/16 06:40 Dose: 250 mls/hr Piperacillin Sod/Tazobactam Sod (Zosyn 3.375 Gm Iv Premix) 3.375 gm in 50 mls @ 100 mls/hr IVPB Q6H [facility] Stop: 11/04/16 06:59 Morphine Sulfate (Morphine) 2 mg IVP Q10M PRN PRN Reason: Pain, moderate (4-7) Stop: 11/03/16 14:29 Last Admin: 11/03/16 13:00 Dose: 2 mg Ondansetron HCl (Zofran Inj) 4 mg IVP Q6 PRN PRN Reason: Nausea/Vomiting Ondansetron HCl (Zofran Inj) 4 mg IVP ONCE PRN PRN Reason: Nausea/Vomiting Stop: 11/03/16 14:29 Oxycodone HCl (Oxycodone Immediate Release Tab) 5 mg PO Q6 PRN PRN Reason: Pain, severe (8-10) Rosuvastatin Calcium (Crestor) 10 mg PO HS [facility] Last Admin: 11/02/16 21:46 Dose: Not Given - Labs Labs: 11/03/16 07:52 11/03/16 07:52 PT 12.1 SECONDS (9.7-12.2) 11/02/16 08:01 INR 1.1 11/02/16 08:01 APTT 28 SECONDS (21-34) 11/02/16 08:01 - Constitutional Appears: No Acute Distress - Head Exam Head Exam: NORMAL INSPECTION, NORMOCEPHALIC - Eye Exam Eye Exam: EOMI, Normal appearance, PERRL Pupil Exam: NORMAL ACCOMODATION - ENT Exam ENT Exam: Mucous Membranes Moist - Respiratory Exam Respiratory Exam: Clear to Ausculation Bilateral, NORMAL BREATHING PATTERN. absent: Wheezes - Cardiovascular Exam Cardiovascular Exam: REGULAR RHYTHM, RRR - GI/Abdominal Exam GI & Abdominal Exam: Soft, Normal Bowel Sounds. absent: Distended, Tenderness - Extremities Exam Extremities Exam: Normal Inspection. absent: Pedal Edema, Tenderness - Neurological Exam Neurological Exam: Alert, Awake, Oriented x3 - Psychiatric Exam Psychiatric exam: Normal Affect, Normal Mood - Skin Skin Exam: Dry, Intact, Normal Color, Warm Assessment and Plan - Assessment and Plan (Free Text) Plan: Pancreatitis Assessment and Plan: Abd US- confirms gallstones in gb; negative lance's sign, normal gallbladder wall , no CBD dilation noted. Ct Abd with findings consistent with pancreatitis.- Diffusely enlarged edematous pancreas with perinephric stranding involving body and [place] [address] LFTs and T. Bili elevated. D. bili - WNL UA 2+ urobilinogen noted NPO, Patient on LR @ 250cc/hr. Monitor for signs of fluid overload Morphine 2 mg IV Q4 PRN, Zofran PRN Patient counseled on high cholesterol as well as importance of dietary changes with exercise. Lipid Panel: T, Chol: 242, LDL: 184, HDL: 40 A1c- 5.7 Thyroid studies- WNL Abdominal series - negative GI Consulted- Dr. Arana- help appreciated - MRCP showed acute pancreatitis involving the pancreatic tail. Cholelithiasis with no cholecystitis. CBD 7mm. No evidence of necrotizing pancreatitis. Agrees with surgical intervention. Surgery Consulted- Dr. Story- POD #0 - s/p lap cholecystectomy, ARIK drain in place. Started on liquid diet, will advance as tolerated. Status: Acute Transaminitis Assessment and Plan: On admission: AST- 193/ ALT- 132/ Alk-P 100 Elevated LFTs - which are now downtrending Hepatitis Panel - negative Status: Acute Hx of cardiac murmur Assessment and Plan: Troponin negative. EKG NSR BNP 21.8 Asymptomatic. Hx of incidental murmur discovered 10 years ago for which patient has not had a prior workup. ECHO: borderline LVH, EF 65%, Mild , mild to moderate pulm HTN. Patient will need to follow up with cardiology and steel inspector as outpatient. Status: Chronic Hypercholesterolemia Assessment and Plan: Patient with known history of high cholesterol. Patient counseled on high cholesterol as well as importance of dietary changes with exercise. T, Chol: 242, LDL: 184, HDL: 40 Started on Crestor 10mg PO QHS Status: Chronic Prophylactic measure Assessment and Plan: SCDs Heparin SC Q 12 GI prophylaxis not currently indicated Started on liquid diet, will advance as tolerated. Status: Acute DW Dario Loja DO, PGY-1 <Luigi Blackburn - Last Filed: 11/04/16 10:04> Objective - Vital Signs/Intake and Output Vital Signs (last 24 hours): Temp Pulse Resp BP Pulse Ox 98.6 F 67 20 164/90 H 92 L 11/04/16 07:55 11/04/16 07:55 11/04/16 07:55 11/04/16 07:55 11/04/16 07:55 Intake and Output: 11/04/16 11/04/16 06:59 18:59 Intake Total 4490 Output Total 140 Balance 4350 - Medications Medications: Current Medications Acetaminophen (Tylenol 325mg Tab) 975 mg PO Q8 [facility] Last Admin: 11/04/16 06:16 Dose: Not Given Famotidine (Pepcid) 20 mg IVP DAILY [facility] Last Admin: 11/03/16 14:04 Dose: Not Given Heparin Sodium (Porcine) (Heparin) 5,000 units SC Q12 [facility] Last Admin: 11/02/16 21:43 Dose: 5,000 units Lactated Ringer's (Lactated Ringer's) 1,000 mls @ 125 mls/hr IV .Q8H [facility] Last Admin: 11/04/16 08:33 Dose: 125 mls/hr Ondansetron HCl (Zofran Inj) 4 mg IVP Q6 PRN PRN Reason: Nausea/Vomiting Oxycodone HCl (Oxycodone Immediate Release Tab) 5 mg PO Q6 PRN PRN Reason: Pain, severe (8-10) Last Admin: 11/04/16 09:23 Dose: 5 mg Rosuvastatin Calcium (Crestor) 10 mg PO HS [facility] Last Admin: 11/03/16 22:48 Dose: 10 mg - Labs Labs: 11/04/16 07:12 11/04/16 07:12 PT 12.1 SECONDS (9.7-12.2) 11/02/16 08:01 INR 1.1 11/02/16 08:01 APTT 28 SECONDS (21-34) 11/02/16 08:01 Attending/Attestation - Attestation I have personally seen and examined this patient.: Yes I have fully participated in the care of the patient.: Yes I have reviewed all pertinent clinical information, including history, physical exam and plan: Yes Notes (Text): 11/04/16 10:03 Patient was seen and examined at bedside with the resident Patient is status post cholecystectomy Discussed with surgery. Advance diet as tolerated Follow-up per GI recommendations Patient is clinically improving Discussed with the medical officer agree with the assessment plan recommended above.
[2016-11-03 16:16] VITALS: RESP 20
--- NOTE | 2016-11-03 16:41 | RAD ---
PROCEDURE: Intraoperative Fluoroscopy. HISTORY: CHOLECYSTITIS FINDINGS: Fluoroscopic assistance was provided for intraoperative cholangiogram.. Please refer to the operative report from during the procedure: 14.9 seconds.
[2016-11-03] MEDS: oxyCODONE 5 mg Immediate Release Tab PO PRN (20:37)
[2016-11-04] MEDS: Piperacill/Tazo 3.375gm in Dex 3.375 GM/50 ML BAG IVPB SCH ×2 (00:05→06:12)
[2016-11-04] MEDS: Lactated Ringer's 1,000 ML IV SCH ×3 (03:34→17:08)
[2016-11-04 07:51] LABS: BASO % 0.2 % (0.0-2.0); EOS % 0.2 % (0.0-4.0); HEMOGLOBIN 12.6 g/dL (11.0-16.0); LYMPH # 1.5 K/uL (1.0-4.3); LYMPH % 14.5 % (20.0-40.0); MEAN CORPUSCULAR HEMOGLOBIN 29.4 pg (27.0-31.0); MEAN CORPUSCULAR HGB CONC 33.8 g/dL (33.0-37.0); MEAN PLATELET VOLUME 8.1 fL (7.2-11.7); MONO # 0.6 K/uL (0.0-0.8); MONO % 6.2 % (0.0-10.0); NEUT # 8.1 K/uL (1.8-7.0); NEUT % 78.9 % (50.0-75.0); RBC 4.29 Mil/uL (3.80-5.20); RED CELL DISTRIBUTION WIDTH 13.4 % (11.5-14.5); WHITE BLOOD COUNT 10.2 K/uL (4.8-10.8)
[2016-11-04 08:03] LABS: ALBUMIN 3.2 g/dL (3.5-5.0)
[2016-11-04 08:05] LABS: GFR AFRICAN-AMERICAN > 60; GFR NON-AFRICAN AMERICAN > 60
[2016-11-04 08:06] LABS: ALT/SGPT 124 U/L (9-52); AST/SGOT 70 U/L (14-36); BLOOD UREA NITROGEN 7 mg/dL (7-17); CALCIUM 8.2 mg/dl (8.6-10.4); MAGNESIUM 1.8 mg/dL (1.6-2.3)
--- NOTE | 2016-11-04 08:17 | CP.PCM.PN ---
Subjective - Date & Time of Evaluation Date of Evaluation: 11/04/16 Time of Evaluation: 07:15 - Subjective Subjective: Patient seen and examined this morning. Reports mild tenderness along surgical drain site. Drain output was 160cc/24, serosanguinous. Patient is tolerating clear liquid diet. Denies n/v. Objective - Vital Signs/Intake and Output Vital Signs (last 24 hours): Temp Pulse Resp BP Pulse Ox 98.6 F 67 20 164/90 H 92 L 11/04/16 07:55 11/04/16 07:55 11/04/16 07:55 11/04/16 07:55 11/04/16 07:55 Intake and Output: 11/04/16 11/04/16 06:59 18:59 Intake Total 4490 Output Total 140 Balance 4350 - Medications Medications: Current Medications Acetaminophen (Tylenol 325mg Tab) 975 mg PO Q8 [facility] Last Admin: 11/04/16 06:16 Dose: Not Given Famotidine (Pepcid) 20 mg IVP DAILY [facility] Last Admin: 11/03/16 14:04 Dose: Not Given Heparin Sodium (Porcine) (Heparin) 5,000 units SC Q12 [facility] Last Admin: 11/02/16 21:43 Dose: 5,000 units Lactated Ringer's (Lactated Ringer's) 1,000 mls @ 250 mls/hr IV .Q4H [facility] Last Admin: 11/04/16 03:34 Dose: 250 mls/hr Ondansetron HCl (Zofran Inj) 4 mg IVP Q6 PRN PRN Reason: Nausea/Vomiting Oxycodone HCl (Oxycodone Immediate Release Tab) 5 mg PO Q6 PRN PRN Reason: Pain, severe (8-10) Last Admin: 11/03/16 20:37 Dose: 5 mg Rosuvastatin Calcium (Crestor) 10 mg PO HS [facility] Last Admin: 11/03/16 22:48 Dose: 10 mg - Labs Labs: 11/04/16 07:12 11/03/16 07:52 PT 12.1 SECONDS (9.7-12.2) 11/02/16 08:01 INR 1.1 11/02/16 08:01 APTT 28 SECONDS (21-34) 11/02/16 08:01 - Constitutional Appears: No Acute Distress - Head Exam Head Exam: NORMOCEPHALIC - Eye Exam Eye Exam: Normal appearance - ENT Exam ENT Exam: Mucous Membranes Moist - Respiratory Exam Respiratory Exam: Chest Wall Tenderness - Cardiovascular Exam Cardiovascular Exam: +S1, +S2 - GI/Abdominal Exam GI & Abdominal Exam: Distended, Soft, Tenderness Additional comments: abdominal dressings c/d/i ARIK drain in place mild distension - Neurological Exam Neurological Exam: Alert, Awake, Oriented x3 - Psychiatric Exam Psychiatric exam: Normal Mood - Skin Skin Exam: Dry, Normal Color, Warm Assessment and Plan - Assessment and Plan (Free Text) Assessment: 55F w/ gallstone pancreatitis s/p laparoscopic cholecystectomy POD1 -Adv diet as tolerated -Encourage OOB & IS -C/w abx -C/w analgesia/anti-emetics -F/u AM labs -Further recs per Dr. Porsha Metzger PGY-2
[2016-11-04] MEDS: oxyCODONE 5 mg Immediate Release Tab PO PRN ×2 (09:23→17:13)
[2016-11-04] MEDS ORDERED: Potassium Chloride 20 mEq ER Tab PO SCH (10:00)
[2016-11-04] MEDS ORDERED: Potassium Chloride 20 mEq ER Tab PO ONE (10:00)
--- NOTE | 2016-11-04 10:44 | OP ---
PROCEDURE DATE: 11/02/2016 PREOPERATIVE DIAGNOSES: Pancreatitis and cholecystitis. POSTOPERATIVE DIAGNOSES: Pancreatitis and cholecystitis. PROCEDURE: Laparoscopic cholecystectomy with C-arm cholangiogram. SURGEON: Dr. Story. CHALK MOLDING MACHINE OPERATOR: Dr. Avendaoñ and Dr. Metgzer. TYPE OF ANESTHESIA: General anesthesia. INDICATIONS: A 55-year-old woman sever abdominal pain found to have pancreatitis on patient's amylase and imaging studies. Gallbladder showed gallbladder filled with gall stones. MRCP preoperatively did not show any evidence of common duct stone. DESCRIPTION OF PROCEDURE: The patient was given general anesthesia, intravenous antibiotics. A Venodyne boots were applied. A Tony trocar was , two additional trocars were placed. The cystic duct and cystic artery were identified. After review of safety had been obtained. We then clipped the cystic duct and cystic artery. We obtained excellent hemostasis in liver bed and removed gallbladder from the felid in a bag. There was moderate amount of ascites encountered on initial entering the abdomen. Because of this, a drain was left in the left upper quadrant. Blood loss for the procedure was less than 50 mL and no operative complications. We had normal cholangiogram. The operation was carried out was laparoscopic cholecystectomy with C-arm cholangiogram. Bari Story Jr., MD cc: Luigi Blackburn MD and Kayden Arana MD
--- NOTE | 2016-11-04 13:18 | CP.PCM.PN ---
<Veronika Bishop - Last Filed: 11/04/16 13:16> Subjective - Date & Time of Evaluation Date of Evaluation: 11/04/16 Time of Evaluation: 07:00 - Subjective Subjective: Medicine Note for Dr. Blackburn Patient was seen and examined at bedside. Patient reports no current pain. She tolerated her liquid diet well, we will advance to soft diet today for lunch. Denied fever, chills, headache, chest pain, abdominal pain, n/v/d/c, or urinary symptoms. Objective - Vital Signs/Intake and Output Vital Signs (last 24 hours): Temp Pulse Resp BP Pulse Ox 98.6 F 67 20 164/90 H 92 L 11/04/16 07:55 11/04/16 07:55 11/04/16 07:55 11/04/16 07:55 11/04/16 07:55 Intake and Output: 11/04/16 11/04/16 06:59 18:59 Intake Total 4490 Output Total 140 Balance 4350 - Medications Medications: Current Medications Acetaminophen (Tylenol 325mg Tab) 975 mg PO Q8 [facility] Last Admin: 11/04/16 06:16 Dose: Not Given Famotidine (Pepcid) 20 mg IVP DAILY [facility] Last Admin: 11/04/16 10:51 Dose: 20 mg Heparin Sodium (Porcine) (Heparin) 5,000 units SC Q12 [facility] Last Admin: 11/04/16 10:51 Dose: 5,000 units Lactated Ringer's (Lactated Ringer's) 1,000 mls @ 125 mls/hr IV .Q8H [facility] Last Admin: 11/04/16 08:33 Dose: 125 mls/hr Ondansetron HCl (Zofran Inj) 4 mg IVP Q6 PRN PRN Reason: Nausea/Vomiting Oxycodone HCl (Oxycodone Immediate Release Tab) 5 mg PO Q6 PRN PRN Reason: Pain, severe (8-10) Last Admin: 11/04/16 09:23 Dose: 5 mg Rosuvastatin Calcium (Crestor) 10 mg PO HS [facility] Last Admin: 11/03/16 22:48 Dose: 10 mg - Labs Labs: 11/04/16 07:12 11/04/16 07:12 PT 12.1 SECONDS (9.7-12.2) 11/02/16 08:01 INR 1.1 11/02/16 08:01 APTT 28 SECONDS (21-34) 11/02/16 08:01 - Constitutional Appears: No Acute Distress - Head Exam Head Exam: NORMAL INSPECTION, NORMOCEPHALIC - Eye Exam Eye Exam: EOMI, Normal appearance, PERRL - ENT Exam ENT Exam: Mucous Membranes Moist, Normal Exam - Respiratory Exam Respiratory Exam: Clear to Ausculation Bilateral, NORMAL BREATHING PATTERN. absent: Decreased Breath Sounds - Cardiovascular Exam Cardiovascular Exam: REGULAR RHYTHM, RRR - GI/Abdominal Exam GI & Abdominal Exam: Soft, Normal Bowel Sounds. absent: Distended, Tenderness - Extremities Exam Extremities Exam: Normal Inspection - Neurological Exam Neurological Exam: Alert, Awake, Oriented x3 - Skin Skin Exam: Dry, Intact, Normal Color, Warm Assessment and Plan - Assessment and Plan (Free Text) Plan: Pancreatitis Assessment and Plan: Surgery Consulted- Dr. Story- POD #1 - s/p lap cholecystectomy, ARIK drain in place. Started on liquid diet, will advance as tolerated. Diet advanced to soft diet Pain management changed to Oxycodone 5mg PO Q6H PRN Abd US- confirms gallstones in gb; negative lance's sign, normal gallbladder wall , no CBD dilation noted. Ct Abd with findings consistent with pancreatitis.- Diffusely enlarged edematous pancreas with perinephric stranding involving body and [place]. [place] [address] LFTs and T. Bili elevated. D. bili - WNL UA 2+ urobilinogen noted NPO, Patient on LR @ 250cc/hr. Monitor for signs of fluid overload Patient counseled on high cholesterol as well as importance of dietary changes with exercise. Lipid Panel: T, Chol: 242, LDL: 184, HDL: 40 A1c- 5.7 Thyroid studies- WNL Abdominal series - negative GI Consulted- Dr. Arana- help appreciated - MRCP showed acute pancreatitis involving the pancreatic tail. Cholelithiasis with no cholecystitis. CBD 7mm. No evidence of necrotizing pancreatitis. Agrees with surgical intervention. Status: Acute Transaminitis Assessment and Plan: On admission: AST- 193/ ALT- 132/ Alk-P 100 Elevated LFTs - which are now downtrending Hepatitis Panel - negative Status: Acute Hx of cardiac murmur Assessment and Plan: Troponin negative. EKG NSR BNP 21.8 Asymptomatic. Hx of incidental murmur discovered 10 years ago for which patient has not had a prior workup. ECHO: borderline LVH, EF 65%, Mild , mild to moderate pulm HTN. Patient will need to follow up with cardiology and automation qa lead as outpatient. Status: Chronic Hypercholesterolemia Assessment and Plan: Patient with known history of high cholesterol. Patient counseled on high cholesterol as well as importance of dietary changes with exercise. T, Chol: 242, LDL: 184, HDL: 40 Started on Crestor 10mg PO QHS Status: Chronic Prophylactic measure Assessment and Plan: SCDs Heparin SC Q 12 GI prophylaxis not currently indicated Started on liquid diet, will advance as tolerated. Status: Acute DW Dario Loja DO, PGY-1 <Luigi Blackburn - Last Filed: 11/04/16 18:01> Objective - Vital Signs/Intake and Output Vital Signs (last 24 hours): Temp Pulse Resp BP Pulse Ox 99.5 F 81 20 157/93 H 92 L 11/04/16 16:00 11/04/16 16:00 11/04/16 16:00 11/04/16 16:00 11/04/16 16:00 Intake and Output: 11/04/16 11/04/16 06:59 18:59 Intake Total 4490 1400 Output Total 140 260 Balance 4350 1140 - Medications Medications: Current Medications Acetaminophen (Tylenol 325mg Tab) 975 mg PO Q8 [facility] Last Admin: 11/04/16 15:51 Dose: 975 mg Famotidine (Pepcid) 20 mg IVP DAILY [facility] Last Admin: 11/04/16 10:51 Dose: 20 mg Heparin Sodium (Porcine) (Heparin) 5,000 units SC Q12 [facility] Last Admin: 11/04/16 10:51 Dose: 5,000 units Lactated Ringer's (Lactated Ringer's) 1,000 mls @ 125 mls/hr IV .Q8H [facility] Last Admin: 11/04/16 17:08 Dose: 125 mls/hr Ondansetron HCl (Zofran Inj) 4 mg IVP Q6 PRN PRN Reason: Nausea/Vomiting Oxycodone HCl (Oxycodone Immediate Release Tab) 5 mg PO Q6 PRN PRN Reason: Pain, severe (8-10) Last Admin: 11/04/16 17:13 Dose: 5 mg Pneumococcal Polyvalent Vaccine (Pneumovax 23 Vaccine) 0.5 ml IM .ONCE ONE Stop: 11/05/16 10:01 Rosuvastatin Calcium (Crestor) 10 mg PO HS [facility] Last Admin: 11/03/16 22:48 Dose: 10 mg - Labs Labs: 11/04/16 07:12 11/04/16 07:12 PT 12.1 SECONDS (9.7-12.2) 11/02/16 08:01 INR 1.1 11/02/16 08:01 APTT 28 SECONDS (21-34) 11/02/16 08:01 Attending/Attestation - Attestation I have personally seen and examined this patient.: Yes I have fully participated in the care of the patient.: Yes I have reviewed all pertinent clinical information, including history, physical exam and plan: Yes Notes (Text): 11/04/16 18:00 Patient seen and examined at bedside with the resident Status post cholecystectomy ARIK drain is in place Patient still is on clear liquid diet. Advance as per recommendations of surgery I discussed the plan of care with the resident and agree with the above history and physical and assessment/plan.
--- NOTE | 2016-11-04 14:06 | CP.PCM.PN ---
Subjective - Date & Time of Evaluation Date of Evaluation: 11/04/16 Time of Evaluation: 14:05 - Subjective Subjective: continued improvement labs ok dc drain in am if amount decreases Objective - Vital Signs/Intake and Output Vital Signs (last 24 hours): Temp Pulse Resp BP Pulse Ox 98.6 F 67 20 164/90 H 92 L 11/04/16 07:55 11/04/16 07:55 11/04/16 07:55 11/04/16 07:55 11/04/16 07:55 Intake and Output: 11/04/16 11/04/16 06:59 18:59 Intake Total 4490 Output Total 140 Balance 4350 - Medications Medications: Current Medications Acetaminophen (Tylenol 325mg Tab) 975 mg PO Q8 [facility] Last Admin: 11/04/16 06:16 Dose: Not Given Famotidine (Pepcid) 20 mg IVP DAILY [facility] Last Admin: 11/04/16 10:51 Dose: 20 mg Heparin Sodium (Porcine) (Heparin) 5,000 units SC Q12 [facility] Last Admin: 11/04/16 10:51 Dose: 5,000 units Lactated Ringer's (Lactated Ringer's) 1,000 mls @ 125 mls/hr IV .Q8H [facility] Last Admin: 11/04/16 08:33 Dose: 125 mls/hr Ondansetron HCl (Zofran Inj) 4 mg IVP Q6 PRN PRN Reason: Nausea/Vomiting Oxycodone HCl (Oxycodone Immediate Release Tab) 5 mg PO Q6 PRN PRN Reason: Pain, severe (8-10) Last Admin: 11/04/16 09:23 Dose: 5 mg Rosuvastatin Calcium (Crestor) 10 mg PO HS [facility] Last Admin: 11/03/16 22:48 Dose: 10 mg - Labs Labs: 11/04/16 07:12 11/04/16 07:12 PT 12.1 SECONDS (9.7-12.2) 11/02/16 08:01 INR 1.1 11/02/16 08:01 APTT 28 SECONDS (21-34) 11/02/16 08:01
[2016-11-05] MEDS: oxyCODONE 5 mg Immediate Release Tab PO PRN ×3 (00:35→14:53)
[2016-11-05] MEDS: Lactated Ringer's 1,000 ML IV SCH ×2 (00:53→10:05)
[2016-11-05 08:24] LABS: BASO # 0.1 K/uL (0.0-0.2); BASO % 0.5 % (0.0-2.0); EOS # 0.1 K/uL (0.0-0.7); EOS % 0.6 % (0.0-4.0); LYMPH # 1.8 K/uL (1.0-4.3); LYMPH % 13.3 % (20.0-40.0); MEAN CELL VOLUME 87.1 fL (81.0-99.0); MEAN CORPUSCULAR HEMOGLOBIN 28.5 pg (27.0-31.0); MEAN CORPUSCULAR HGB CONC 32.7 g/dL (33.0-37.0); MEAN PLATELET VOLUME 8.6 fL (7.2-11.7); MONO # 0.8 K/uL (0.0-0.8); MONO % 6.3 % (0.0-10.0); NEUT # 10.5 K/uL (1.8-7.0); NEUT % 79.3 % (50.0-75.0); NRBC % 0.1 % (0.0-2.0); RBC 4.55 Mil/uL (3.80-5.20); RED CELL DISTRIBUTION WIDTH 13.2 % (11.5-14.5); WHITE BLOOD COUNT 13.2 K/uL (4.8-10.8)
[2016-11-05 08:40] LABS: ALBUMIN 3.4 g/dL (3.5-5.0)
[2016-11-05 08:42] LABS: GFR AFRICAN-AMERICAN > 60; GFR NON-AFRICAN AMERICAN > 60
[2016-11-05 08:43] LABS: AST/SGOT 46 U/L (14-36); BLOOD UREA NITROGEN 6 mg/dL (7-17)
[2016-11-05 08:44] LABS: ALT/SGPT 99 U/L (9-52); CALCIUM 8.3 mg/dl (8.6-10.4); MAGNESIUM 1.6 mg/dL (1.6-2.3)
--- NOTE | 2016-11-05 09:33 | CP.PCM.PN ---
Subjective - Date & Time of Evaluation Date of Evaluation: 11/05/16 Time of Evaluation: 07:35 - Subjective Subjective: Pt S&E this AM. Patient is out of bed to chair. Reports feeling better. Tolerating PO intake. Denies n/v. Mild discomfort at surgical drain site. ARIK drain ouput: 210cc/24hr, serosanguinous. Objective - Vital Signs/Intake and Output Vital Signs (last 24 hours): Temp Pulse Resp BP Pulse Ox 98 F 90 20 155/91 H 98 11/05/16 08:09 11/05/16 08:09 11/05/16 08:09 11/05/16 08:09 11/05/16 08:09 Intake and Output: 11/05/16 11/05/16 06:59 18:59 Intake Total 2420 Output Total 1000 Balance 1420 - Medications Medications: Current Medications Acetaminophen (Tylenol 325mg Tab) 975 mg PO Q8 [facility] Last Admin: 11/05/16 06:32 Dose: Not Given Famotidine (Pepcid) 20 mg IVP DAILY [facility] Last Admin: 11/04/16 10:51 Dose: 20 mg Heparin Sodium (Porcine) (Heparin) 5,000 units SC Q12 [facility] Last Admin: 11/04/16 21:22 Dose: 5,000 units Magnesium Sulfate/Dextrose (Magnesium Sulfate 1 Gm/100 Ml D5w) 1 gm in 100 mls @ 300 mls/hr IVPB Q30M [facility] Stop: 11/05/16 10:04 Piperacillin Sod/Tazobactam (Sod 3.375 gm/ Sodium Chloride) 100 mls @ 200 mls/ hr IVPB Q6H [facility] Ondansetron HCl (Zofran Inj) 4 mg IVP Q6 PRN PRN Reason: Nausea/Vomiting Oxycodone HCl (Oxycodone Immediate Release Tab) 5 mg PO Q6 PRN PRN Reason: Pain, severe (8-10) Last Admin: 11/05/16 07:42 Dose: 5 mg Pneumococcal Polyvalent Vaccine (Pneumovax 23 Vaccine) 0.5 ml IM .ONCE ONE Stop: 11/05/16 10:01 Potassium Chloride (K-Dur 20 Meq Er Tab) 40 meq PO DAILY [facility] Stop: 11/05/16 10:01 Rosuvastatin Calcium (Crestor) 10 mg PO HS [facility] Last Admin: 11/04/16 21:22 Dose: 10 mg - Labs Labs: 11/05/16 08:10 11/05/16 08:10 PT 12.1 SECONDS (9.7-12.2) 11/02/16 08:01 INR 1.1 11/02/16 08:01 APTT 28 SECONDS (21-34) 11/02/16 08:01 - Constitutional Appears: No Acute Distress - Head Exam Head Exam: NORMOCEPHALIC - Eye Exam Eye Exam: Normal appearance - ENT Exam ENT Exam: Mucous Membranes Moist - Respiratory Exam Respiratory Exam: NORMAL BREATHING PATTERN - Cardiovascular Exam Cardiovascular Exam: +S1, +S2 - GI/Abdominal Exam GI & Abdominal Exam: Soft, Tenderness Additional comments: mild tenderness along drain site - Neurological Exam Neurological Exam: Alert, Awake, Oriented x3 - Psychiatric Exam Psychiatric exam: Normal Mood - Skin Skin Exam: Dry, Warm Assessment and Plan - Assessment and Plan (Free Text) Assessment: 55F s/p laparoscopic cholecystectomy POD2 -Monitor drain output -Regular diet -Abx -Analgesic/Anti-emetic -Replace lytes prn -DVT/GI ppx -Further recs per Dr. Porsha Metzger PGY2
[2016-11-05] MEDS: Magnesium Sulfate 1 gm in D5W 1 GM/100 ML BAG IVPB SCH ×2 (09:40→10:45)
[2016-11-05] MEDS ORDERED: Piperacillin/Tazobact 3.375 GM in Sodium Chloride 100 ML IVPB SCH ×2 (09:45→12:00)
[2016-11-05] MEDS ORDERED: Potassium Chloride 20 mEq ER Tab PO ONE (10:00)
[2016-11-05] MEDS ORDERED: Pneumococcal 23-Valent Vaccine IM ONE ×2 (10:00→13:09)
--- NOTE | 2016-11-05 12:11 | CP.PCM.DIS ---
Provider - Provider Date of Admission: 11/01/16 18:41 Attending physician: Luigi Blackburn MD Primary care physician: none Consults: Dr. Arana - GI Dr. Story - surgery Time Spent in preparation of Discharge (in minutes): 35 Diagnosis - Discharge Diagnosis (1) Pancreatitis Status: Acute (2) Transaminitis Status: Acute (3) Hx of cardiac murmur Status: Chronic (4) Hypercholesterolemia Status: Chronic Hospital Course - Lab Results Lab Results: Micro Results 11/03/16 Unknown Bile Gram Stain - Final 11/03/16 Unknown Bile Body Fluid Culture - Preliminary NO GROWTH AFTER 24 HOURS Most Recent Lab Values WBC 13.2 K/uL (4.8-10.8) H 11/05/16 08:10 RBC 4.55 Mil/uL (3.80-5.20) 11/05/16 08:10 Hgb 13.0 g/dL (11.0-16.0) 11/05/16 08:10 Hct 39.6 % (34.0-47.0) 11/05/16 08:10 MCV 87.1 fL (81.0-99.0) 11/05/16 08:10 MCH 28.5 pg (27.0-31.0) 11/05/16 08:10 MCHC 32.7 g/dL (33.0-37.0) L 11/05/16 08:10 RDW 13.2 % (11.5-14.5) 11/05/16 08:10 Plt Count 235 K/uL (130-400) 11/05/16 08:10 MPV 8.6 fL (7.2-11.7) 11/05/16 08:10 Neut % (Auto) 79.3 % (50.0-75.0) H 11/05/16 08:10 Lymph % (Auto) 13.3 % (20.0-40.0) L 11/05/16 08:10 [place] % (Auto) 6.3 % (0.0-10.0) 11/05/16 08:10 Eos % (Auto) 0.6 % (0.0-4.0) 11/05/16 08:10 Baso % (Auto) 0.5 % (0.0-2.0) 11/05/16 08:10 Neut # 10.5 K/uL (1.8-7.0) H 11/05/16 08:10 Lymph # 1.8 K/uL (1.0-4.3) 11/05/16 08:10 [place] # 0.8 K/uL (0.0-0.8) 11/05/16 08:10 Eos # 0.1 K/uL (0.0-0.7) 11/05/16 08:10 Baso # 0.1 K/uL (0.0-0.2) 11/05/16 08:10 PT 12.1 SECONDS (9.7-12.2) 11/02/16 08:01 INR 1.1 11/02/16 08:01 APTT 28 SECONDS (21-34) 11/02/16 08:01 Sodium 137 mmol/L (132-148) 11/05/16 08:10 Potassium 3.3 mmol/L (3.6-5.2) L 11/05/16 08:10 Chloride 96 mmol/L (98-107) L 11/05/16 08:10 Carbon Dioxide 27 mmol/L (22-30) 11/05/16 08:10 Anion Gap 17 (10-20) 11/05/16 08:10 BUN 6 mg/dL (7-17) L 11/05/16 08:10 Creatinine 0.6 MG/DL (0.7-1.2) L 11/05/16 08:10 Est GFR ( Amer) > 60 11/05/16 08:10 Est GFR (Non-Af Amer) > 60 11/05/16 08:10 POC Glucose (mg/dL) 121 mg/dL (65-110) H 11/02/16 07:06 Random Glucose 107 mg/dL (65-105) H 11/05/16 08:10 Hemoglobin A1c 5.7 % (4.2-6.5) 11/02/16 08:01 Calcium 8.3 mg/dl (8.6-10.4) L 11/05/16 08:10 Phosphorus 3.7 mg/dL (2.5-4.5) 11/05/16 08:10 Magnesium 1.6 mg/dL (1.6-2.3) 11/05/16 08:10 Total Bilirubin 1.2 mg/dL (0.2-1.3) 11/05/16 08:10 Direct Bilirubin 0.4 mg/dL (0.0-0.4) 11/02/16 08:01 AST 46 U/L (14-36) H D 11/05/16 08:10 ALT 99 U/L (9-52) H D 11/05/16 08:10 Alkaline Phosphatase 87 U/L (38-126) 11/05/16 08:10 Troponin I < 0.0120 ng/mL (0.00-0.120) 11/01/16 17:24 NT-Pro-B Natriuret Pep 21.8 pg/mL (0-900) 11/01/16 17:24 Total Protein 6.9 g/dL (6.3-8.3) 11/05/16 08:10 Albumin 3.4 g/dL (3.5-5.0) L 11/05/16 08:10 Globulin 3.5 gm/dL (2.2-3.9) 11/05/16 08:10 Albumin/Globulin Ratio 1.0 (1.0-2.1) 11/05/16 08:10 Triglycerides 107 mg/dL (0-149) 11/02/16 08:01 Cholesterol 242 mg/dL (0-199) H 11/02/16 08:01 LDL Cholesterol Direct 184 mg/dL (0-129) H 11/02/16 08:01 HDL Cholesterol 40 mg/dL (30-70) 11/02/16 08:01 Amylase 274 U/L (30-110) H 11/03/16 07:52 Lipase 793 U/L (23-300) H 11/03/16 07:52 Free T4 0.91 ng/dL (0.78-2.19) 11/02/16 08:01 TSH 3rd Generation 1.29 mIU/L (0.46-4.68) 11/02/16 08:01 Urine Color Yellow (YELLOW) 11/01/16 21:36 Urine Clarity Clear (Clear) 11/01/16 21:36 Urine pH 6.0 (5.0-8.0) 11/01/16 21:36 Ur Specific Allen 1.020 (1.003-1.030) 11/01/16 21:36 Urine Protein Negative mg/dL (NEGATIVE) 11/01/16 21:36 Urine Glucose (UA) Normal mg/dL (Normal) 11/01/16 21:36 Urine Ketones Trace mg/dL (NEGATIVE) 11/01/16 21:36 Urine Blood Negative (NEGATIVE) 11/01/16 21:36 Urine Nitrate Negative (NEGATIVE) 11/01/16 21:36 Urine Bilirubin Negative (NEGATIVE) 11/01/16 21:36 Urine Urobilinogen 2.0 mg/dL (0.2-1.0) H 11/01/16 21:36 Ur Leukocyte Esterase Neg Leia/uL (Negative) 11/01/16 21:36 Urine WBC (Auto) 1 /hpf (0-5) 11/01/16 21:36 Urine RBC (Auto) 4 /hpf (0-3) H 11/01/16 21:36 Ur Squamous Epith Cells 1 /hpf (0-5) 11/01/16 21:36 Urine Bacteria Rare (<OCC) 11/01/16 21:36 Urine HCG, Qual Negative (NEGATIVE) 11/02/16 12:22 Hepatitis A IgM Ab Negative (NEGATIVE) 11/02/16 08:01 Hep Bs Antigen Negative (NEGATIVE) 11/02/16 08:01 Hep B Core IgM Ab Negative (NEGATIVE) 11/02/16 08:01 Hepatitis C Antibody Negative (NEGATIVE) 11/02/16 08:01 - Hospital Course Hospital Course: PMHx- as noted above. Of note, murmur was discovered incidentally on routine studies that patient acquired approx 10 years ago. Patient does not follow up with any doctor and has not had complaints of cardiac related symptoms in the past. PSHx- denies Fam Hx- many members of the family have high cholesterol; brother has a heart murmur Meds- None Social Hx- Admits to occasional alcohol use. Patient had a glass of wine on Monday. Denies tobacco or drug use. Allergies- NKDA PMD- None On admission: 55 year old female with PMHx significant for hypercholesterolemia and heart murmur presents with complaints of epigastric abdominal pain which started earlier today. Patient states that she was about to make lunch around 14 :30PM when she started experiencing the pain. It was initially rated an 8/10 with radiation to her back. Patient states that she has never experienced this sensation before. She experienced chills and "felt" as if she could not move her legs. Patient states that she was truly just surprised by the abdominal pain and was in fact able to ambulate about without difficulty. Patient called 911 and was thus brought to the emergency room. Upon arriving, patient had three episodes of non bloody; questionably bilious vomitus. Patient admits to chills, diaphoresis and nausea. She denies chest pain, palpitations, headaches, diarrhea, constipation, leg pain, recent travel, recent dietary changes, weight changes, changes in appetite, trauma, insect or animal bite or paresthesias at this time. Patient was accompanied by family members including son who is employed here. During Hospital Stay: [place] [id number]. LFTs and T bili were also eleavted. GI was consulted. MRCP showed acute pancreatitis involving the pancreatic tail. Cholelithiasis with no cholecystitis. CBD 7mm. No evidence of narcotizing pancreatitis. General surgery was then consulted. Patient then had a laproscopic cholecystectomy on 11/03/2016. LFTs were elevated but trended down. Diet was advanced as tolerated and patient was tolerating full diet by discharge. Patient with known history of high cholesterol. Patient was counseled on high cholesterol as well as importance of dietary changes with exercise. T, Chol: 242, LDL: 184, HDL: 40. She was started on Crestor 10mg PO QHS. Troponin negative. EKG NSR. Patient also has a Hx of incidental murmur discovered 10 years ago for which patient has not had a prior workup. ECHO showed borderline LVH, EF 65%, Mild , mild to moderate pulm HTN. Patient will need to follow up with cardiology and wet room worker as outpatient. Troponins were negative x 3. BNP was normal. Patient stale for discharge home per Dr. Story. She is to follow up with him in his office within one week of discharge. Patient will have the drain removed in the office. Drain instructions were explained per surgery and should be changed as needed. Patient is to take Crestor 10mg once daily at night. She is to follow up with a primary care doctor of her course or come to the [facility] at [facility] for post hospital care. She is to have her blood pressure monitored as an outpatient. She is to return to the emergency room if symptoms return. All instructions explained to the patient and she agrees. *This is only a summary. Please refer to EMR for full details. Discharge Exam - Head Exam Head Exam: NORMOCEPHALIC - Eye Exam Eye Exam: EOMI, Normal appearance, PERRL Pupil Exam: NORMAL ACCOMODATION - ENT Exam ENT Exam: Mucous Membranes Moist - Respiratory Exam Respiratory Exam: NORMAL BREATHING PATTERN. absent: Accessory Muscle Use, Respiratory Distress - Cardiovascular Exam Cardiovascular Exam: REGULAR RHYTHM, +S1, +S2 - GI/Abdominal Exam GI & Abdominal Exam: Normal Bowel Sounds, Soft. absent: Distended, Firm, Guarding, Tenderness Additional comments: drain in place - Extremities Exam Extremities exam: normal inspection - Back Exam Back exam: NORMAL INSPECTION. absent: CVA tenderness (L), CVA tenderness (R), paraspinal tenderness - Neurological Exam Neurological exam: Alert, CN II-XII Intact, Normal Gait, Oriented x3 - Psychiatric Exam Psychiatric exam: Normal Affect, Normal Mood - Skin Skin Exam: Dry, Normal Color Discharge Plan - Discharge Medications Prescriptions: oxyCODONE [oxyCODONE Immediate Release Tab] 5 mg PO Q8 #10 tab Rosuvastatin Calcium [Crestor] 10 mg PO HS #30 tab - Follow Up Plan Condition: GUARDED Disposition: HOME/ ROUTINE Instructions: Rosuvastatin (By mouth), Pancreatitis (DC), Laparoscopic Cholecystectomy (DC) Additional Instructions: Patient stale for discharge home per Dr. Story. She is to follow up with him in his office within one week of discharge. Patient will have the drain removed in the office. Drain instructions were explained per surgery and should be changed as needed. Patient is to take Crestor 10mg once daily at night. She is also to have oxycodone 5mg to take by mouth as needed every 8 hours as needed for pain (disp#10) She is to follow up with a primary care doctor of her course or come to the [facility] for post hospital care. She is to have her blood pressure monitored as an outpatient. She is to return to the emergency room if symptoms return. All instructions explained to the patient and she agrees. Referrals: [facility] at [facility] [Outside] Bari Story Jr., MD [Staff Provider] -
[2016-11-05 13:09] LABS: SQUAMOUS EPITHIAL < 1 /hpf (0-5); URINE BILIRUBIN NEGATIVE (NEGATIVE); URINE BLOOD 1+ (NEGATIVE); URINE CLARITY Clear (Clear); URINE COLOR Yellow (YELLOW); URINE GLUCOSE (UA) NORMAL (Normal); URINE LEUKOCYTE ESTERASE NEG Leu/uL (Negative); URINE NITRATE NEGATIVE (NEGATIVE); URINE PROTEIN NEGATIVE (NEGATIVE)
[2016-11-05 16:00] VITALS: BP 137/62; PULSE 82; TEMP 99.1
[2016-11-08 10:15] VITALS: O2SAT 95
== END 2016-11-05 16:10 | disposition home or self-care (01) | DRG 418 ==
LOC: C.ER 15:47 → C.9E 18:41 → C.3T 19:17
PROVIDERS: ADMIT Internal Medicine; ATTEND Internal Medicine
PROC: BF131ZZ Fluoroscopy of Gallbladder and Bile Ducts using Low Osmolar Contrast (ICD-10-PCS; 2016-11-03)
PROC: 0FT44ZZ Resection of Gallbladder, Percutaneous Endoscopic Approach (ICD-10-PCS; principal; 2016-11-03 10:00)
DX: K85.10 Biliary acute pancreatitis without necrosis or infection (principal); K80.10 Calculus of gallbladder with chronic cholecystitis without obstruction; R18.8 Other ascites; I27.2 Other secondary pulmonary hypertension; E78.00 Pure hypercholesterolemia, unspecified; E78.5 Hyperlipidemia, unspecified; I10 Essential (primary) hypertension